=== PATIENT | female | born 1995 | race Caucasian/White ===

== ENCOUNTER 2017-12-08 04:10 | Inpatient (IN) | payer OTHER ==
[~2017-12-08] VITALS: Ht 162.6 cm; Wt 74.4 kg
[2017-12-08 04:42] VITALS: BP 130/70
[2017-12-08] MEDS ORDERED: OXYTOCIN 30 UNITS/LACT RINGERS 500 ML IV ONE (14:41)
[2017-12-08] MEDS ORDERED: CITRIC ACID/SODIUM CITRATE 30 ML SOLUTION UDCUP PO PRN (14:45)
[2017-12-08] MEDS ORDERED: FentaNYL CITRATE-PF 100 MCG/2 ML VIAL IVP PRN (14:45)
[2017-12-08] MEDS ORDERED: METOCLOPRAMIDE HCL 5 MG/ML 2 ML VIAL IVP PRN (14:45)
[2017-12-08] MEDS: RINGERS SOLUTION,LACTATED 1,000 ML IV SCH ×2 (15:05→23:47)
[2017-12-08 15:31] LABS: BASOPHILS % (AUTO) 0.1 % (0.0-2.0); EOSINOPHILS % (AUTO) 0.1 % (1.0-6.0); HEMATOCRIT 35.6 % (36-46); HEMOGLOBIN 11.5 g/dL (12.0-16.0); LYMPHOCYTES # (AUTO) 1.7 K/uL (1.0-4.8); LYMPHOCYTES % (AUTO) 13.5 % (22.0-44.0); MEAN CORPUSCULAR HEMOGLOBIN 27.7 pg (26.0-34.0); MEAN CORPUSCULAR HGB CONC 32.4 G/dL (31.0-37.0); MEAN CORPUSCULAR VOLUME 86 fL (80-100); MONOCYTES # (AUTO) 0.8 K/uL (0.1-1.0); MONOCYTES % (AUTO) 6.5 % (2.0-9.0); NEUTROPHILS # (AUTO) 10.1 K/uL (1.8-7.7); NEUTROPHILS % (AUTO) 79.8 % (40.0-70.0); PLATELET COUNT (AUTO)-OB 185 K/uL (150-450); RED BLOOD CELL COUNT(AUTO) 4.16 MIL/uL (4.00-5.20); RED CELL DISTRIBUTION WIDTH 14.7 % (11.5-14.5)
[2017-12-08] MEDS ORDERED: OXYTOCIN 30 UNITS/LACT RINGERS 500 ML IV PRN (17:15)
[2017-12-08] MEDS: RINGERS SOLUTION,LACTATED 1,000 ML IV PRN ×2 (18:24→20:00)
[2017-12-08] MEDS ORDERED: ROPIVACAINE HCL/PF 0.2% 100 ML ED ONE (18:39)
[2017-12-08] MEDS ORDERED: OXYGEN THERAPY IH SCH (20:00)
[2017-12-09] MEDS ORDERED: CeFAZolin 2 GM/DEXTROSE 50 ML IV ONE (01:45)
[2017-12-09] MEDS ORDERED: ACETAMINOPHEN/CODEINE 300-30 MG TABLET PO PRN (02:00)
[2017-12-09] MEDS ORDERED: BENZOCAINE 20%/MENTHOL 56 GM SPRAY CANISTER TP PRN (02:00)
[2017-12-09] MEDS ORDERED: GLYCERIN/WITCH HAZEL LEAF 40 PADS JAR TP PRN (02:00)
[2017-12-09] MEDS ORDERED: LANOLIN 7 GM OINTMENT TP PRN (02:00)
[2017-12-09] MEDS: ACETAMINOPHEN/CODEINE 300-30 MG TABLET PO PRN (06:04)
[2017-12-09] MEDS: MAGNESIUM HYDROXIDE SUSPENSION 30 ML UDCUP PO SCH ×2 (09:16→21:11)
[2017-12-09] MEDS: IBUPROFEN 800 MG TABLET PO SCH ×3 (09:16→23:39)
[2017-12-09] MEDS ORDERED: IBUP-2070 PO (22:06)
[2017-12-09] MEDS ORDERED: FERR-89 PO (22:09)
[2017-12-10] MEDS: IBUPROFEN 800 MG TABLET PO SCH (06:04)
[2017-12-10] MEDS: ACETAMINOPHEN/CODEINE 300-30 MG TABLET PO PRN (06:10)
== END 2017-12-10 11:10 | disposition home or self-care (01) | DRG 775 ==
LOC: 4S 04:10 → OBSVTOIN 04:10
PROVIDERS: ADMIT Obstetrics & Gynecology; ATTEND Obstetrics & Gynecology
PROC: 10D07Z6 Extraction of Products of Conception, Vacuum, Via Natural or Artificial Opening (ICD-10-PCS; principal; 2017-12-09)
PROC: 0W8NXZZ Division of Female Perineum, External Approach (ICD-10-PCS; 2017-12-09)
PROC: 3E0R3BZ Introduction of Anesthetic Agent into Spinal Canal, Percutaneous Approach (ICD-10-PCS; 2017-12-09)
PROC: 00HU33Z Insertion of Infusion Device into Spinal Canal, Percutaneous Approach (ICD-10-PCS; 2017-12-09)
DX: O80 Encounter for full-term uncomplicated delivery (principal); Z37.0 Single live birth; Z3A.39 39 weeks gestation of pregnancy
CPT/HCPCS: 59025; 86850; 86900; 86901; J0690; J2590; J2795; J7120